=== PATIENT | female | born 1985 | race Caucasian/White ===

== ENCOUNTER 2022-12-24 16:40 | Emergency (ER) | payer OTHER ==
[2022-12-24 16:55] VITALS: BMI 27.8
[2022-12-24 19:46] LABS: BASO % 0.4 % (0-2.0); EOS % 2.7 % (0-4.5); HEMATOCRIT 36.7 % (32.4-45.2); HEMOGLOBIN 12.7 GM/dL (10.7-15.3); LYMPH % 34.6 % (8-40); MCH 29.7 pg (25.7-33.7); MCHC 34.5 g/dl (32.0-36.0); MEAN CELL VOLUME 86.3 fl (80-96); MEAN PLT VOLUME 7.2 fl (7.5-11.1); NEUT % 57.3 % (42.8-82.8); PLATELET COUNT 221 10^3/uL (134-434); RBC 4.26 M/mm3 (3.60-5.2); RDW 13.8 % (11.6-15.6); WHITE BLOOD COUNT 4.4 K/mm3 (4.0-10.0)
[2022-12-24 20:08] LABS: POTASSIUM 3.7 mmol/L (3.5-5.1)
[2022-12-24 20:09] LABS: CALCIUM 8.3 mg/dL (8.5-10.1)
[2022-12-24 20:10] LABS: ALBUMIN 3.5 g/dl (3.4-5.0); BLOOD UREA NITROGEN 12.1 mg/dL (7-18)
[2022-12-24 20:13] LABS: CREATININE 0.7 mg/dL (0.55-1.3)
[2022-12-24 20:15] LABS: BILIRUBIN,TOTAL 0.1 mg/dL (0.2-1); TOT PROT 6.9 g/dl (6.4-8.2)
[2022-12-24] MEDS ORDERED: AMOX TR/POT CLAV 875MG/125MG TABLETS (FP) PO ONE (22:30)
[2022-12-24 22:47] VITALS: BP 103/49; PULSE 55; RESP 18; TEMP 98.4
[2022-12-24] MEDS ORDERED: AMOX TR/POT CLAV 875MG/125MG TABLETS (FP) ONE (23:06)
== END 2022-12-24 23:46 | disposition home or self-care (01) ==
LOC: JER 16:40
DX: H00.035 Abscess of left lower eyelid (principal)
CPT/HCPCS: 36415; 70487-TC; 80053; 84703; 85025; 99285-25; Q9967

== ENCOUNTER 2023-02-27 11:03 | Emergency (ER) | payer OTHER ==
[2023-02-27 11:43] VITALS: BP 94/48; PULSE 62; RESP 18; TEMP 98.2; BMI 27.8
== END 2023-02-27 14:19 | disposition left against medical advice (07) ==
LOC: JERFT 11:03 → JER 11:03
DX: M25.532 Pain in left wrist (principal); L53.8 Other specified erythematous conditions
CPT/HCPCS: 99281-25

== ENCOUNTER 2023-03-01 23:03 | Inpatient (IN) | payer OTHER ==
[2023-03-01] MEDS ORDERED: PIPERACILLIN/TAZOB 4.5 GM 4.5 GM in DEXTROSE 5%-WATER 100 ML IVPB ONE (23:20)
[2023-03-01] MEDS ORDERED: VANCOMYCIN 1,000 MG in DEXTROSE 5%-WATER - 250 ML IVPB ONE (23:20)
[2023-03-01] MEDS ORDERED: PIPERACILLIN/TAZOBACTAM 4.5 GM VIAL IVPB ONE (23:57)
[2023-03-01] MEDS ORDERED: VANCOMYCIN 1,000 MG VIAL (RESTRICTED TO ID ONLY) ONE (23:58)
[2023-03-02 00:35] LABS: HEMATOCRIT 31.7 % (32.4-45.2); HEMOGLOBIN 11.1 GM/dL (10.7-15.3); MEAN CELL VOLUME 85.9 fl (80-96); MEAN PLT VOLUME 7.3 fl (7.5-11.1); PLATELET COUNT 246 10^3/uL (134-434); RBC 3.69 M/mm3 (3.60-5.2); RDW 13.2 % (11.6-15.6); WHITE BLOOD COUNT 5.1 K/mm3 (4.0-10.0)
[2023-03-02] MEDS ORDERED: morphine SULFATE 4 MG/ML VIAL ONE (01:21)
[2023-03-02 01:25] LABS: POTASSIUM 3.6 mmol/L (3.5-5.1)
[2023-03-02 01:27] LABS: CALCIUM 8.4 mg/dL (8.5-10.1)
[2023-03-02 01:28] LABS: ALBUMIN 3.1 g/dl (3.4-5.0); MAGNESIUM 1.8 mg/dL (1.8-2.4)
[2023-03-02 01:31] LABS: CREATININE 0.6 mg/dL (0.55-1.3); PHOSPHOROUS 3.4 mg/dL (2.5-4.9)
[2023-03-02 01:32] LABS: BILIRUBIN,TOTAL 0.2 mg/dL (0.2-1)
[2023-03-02 01:33] LABS: TOT PROT 6.3 g/dl (6.4-8.2)
[2023-03-02] MEDS ORDERED: morphine CARPU-JECT 4 MG/1 ML DISP.SYRIN IVPUSH ONE (01:41)
[2023-03-02] MEDS ORDERED: HYDROmorphone HCl 2 MG/ML VIAL IVPUSH STA (03:05)
[2023-03-02] MEDS ORDERED: HYDROmorphone HCL/PF 1 MG/ML VIAL ONE (03:13)
[2023-03-02 04:00] VITALS: BMI 29.2
[2023-03-02] MEDS ORDERED: DOCUSATE SODIUM 100 MG CAPSULE (FP) PO PRN (04:22)
[2023-03-02] MEDS: SODIUM CHLORIDE 1,000 ML IV SCH (05:07)
[2023-03-02] MEDS ORDERED: HYDROmorphone HCl 2 MG/ML VIAL IVPB PRN (05:38)
[2023-03-02] MEDS: buPROPion HCL 100 MG TABLET PO SCH ×3 (06:20→22:10)
[2023-03-02] MEDS ORDERED: ACETAMINOPHEN 1000 MG/100 ML BAG IVPB PRN ×2 (07:15→07:32)
[2023-03-02] MEDS: PIPERACILLIN/TAZOB 3.375 GM 3.375 GM in DEXTROSE 5%-WATER - 50 ML IVPB SCH ×3 (08:37→22:10)
[2023-03-02] MEDS ORDERED: methaDONE 80 MG, methaDONE 20 MG PO ONE (10:15)
[2023-03-02] MEDS: methaDONE 80 MG, methaDONE 20 MG PO SCH (10:43)
[2023-03-02] MEDS: NICOTINE 14 MG/24 HOURS TOPICAL PATCH TD SCH (10:44)
[2023-03-02] MEDS: VANCOMYCIN PREMIX 1.5 GM 1,500 MG/300 ML BAG IVPB SCH ×2 (11:30→23:33)
[2023-03-02] MEDS: ALPRAZolam 2 MG TABLET PO PRN ×2 (11:30→22:10)
[2023-03-02] MEDS: KETOROLAC TROMETHAMINE 30 MG/1 ML VIAL IVPUSH PRN (13:22)
[2023-03-03] MEDS: KETOROLAC TROMETHAMINE 30 MG/1 ML VIAL IVPUSH PRN ×3 (03:08→18:14)
[2023-03-03] MEDS: PIPERACILLIN/TAZOB 3.375 GM 3.375 GM in DEXTROSE 5%-WATER - 50 ML IVPB SCH ×2 (03:09→19:02)
[2023-03-03] MEDS ORDERED: methaDONE HCL 10 MG TABLET PO SCH (06:00)
[2023-03-03] MEDS: SODIUM CHLORIDE 1,000 ML IV SCH (06:20)
[2023-03-03] MEDS: methaDONE 80 MG, methaDONE 20 MG PO SCH (06:20)
[2023-03-03] MEDS: buPROPion HCL 100 MG TABLET PO SCH ×3 (06:21→21:38)
[2023-03-03 08:15] LABS: PROTHROMBIN TIME (PATIENT) 11.6 SEC (9.7-13.0)
[2023-03-03 08:18] LABS: ACTIVATED PTT 31.9 SECONDS (25.2-36.5)
[2023-03-03 08:51] LABS: BLOOD UREA NITROGEN 11.2 mg/dl (7-18); CALCIUM 8.1 mg/dl (8.5-10.1); CREATININE 0.6 mg/dl (0.6-1.3); MAGNESIUM 1.8 mg/dL (1.8-2.4); PHOSPHOROUS 3.96 (2.5-4.9); POTASSIUM 4.1 mmol/L (3.5-5.1)
[2023-03-03] MEDS ORDERED: PIPERACILLIN/TAZOB 3.375 GM 3.375 GM in DEXTROSE 5%-WATER - 50 ML IVPB SCH (09:00)
[2023-03-03] MEDS: ENOXAPARIN NA (PORCINE) 40 MG/0.4 ML DISP.SYRIN SQ SCH (09:35)
[2023-03-03] MEDS: NICOTINE 14 MG/24 HOURS TOPICAL PATCH TD SCH (09:35)
[2023-03-03 09:44] LABS: BASO % 0.6 % (0-2.0); EOS % 2.4 % (0-4.5); HEMATOCRIT 34.7 % (32.4-45.2); HEMOGLOBIN 11.5 GM/dL (10.7-15.3); MCH 29.2 pg (25.7-33.7); MCHC 33.2 g/dl (32.0-36.0); MEAN CELL VOLUME 87.9 fl (80-96); MEAN PLT VOLUME 7.4 fl (7.5-11.1); MONO % 5.5 % (3.8-10.2); NEUT % 57.5 % (42.8-82.8); PLATELET COUNT 240 10^3/uL (134-434); RBC 3.94 M/mm3 (3.60-5.2); RDW 12.9 % (11.6-15.6); WHITE BLOOD COUNT 2.9 K/mm3 (4.0-10.0)
[2023-03-03] MEDS: ALPRAZolam 2 MG TABLET PO PRN ×2 (11:20→21:38)
[2023-03-03] MEDS ORDERED: VANCOMYCIN HCL 1,500 MG in DEXTROSE 5%-WATER - 250 ML IVPB SCH (12:00)
[2023-03-03] MEDS ORDERED: PIPERACILLIN/TAZOB 3.375 GM 3.375 GM in DEXTROSE 5%-WATER - 50 ML IVPB ONE (18:30)
[2023-03-03] MEDS ORDERED: VANCOMYCIN 1,000 MG in DEXTROSE 5%-WATER - 250 ML IVPB ONE (18:30)
[2023-03-03] MEDS: VANCOMYCIN/WATER FOR INJ (PEG) 1,000 MG/200 ML BAG IVPB SCH (20:05)
[2023-03-04] MEDS: KETOROLAC TROMETHAMINE 30 MG/1 ML VIAL IVPUSH PRN ×2 (00:12→17:30)
[2023-03-04] MEDS: PIPERACILLIN/TAZOB 3.375 GM 3.375 GM in DEXTROSE 5%-WATER - 50 ML IVPB SCH ×2 (01:54→09:05)
[2023-03-04] MEDS: SODIUM CHLORIDE 1,000 ML IV SCH ×2 (04:56→21:32)
[2023-03-04] MEDS: buPROPion HCL 100 MG TABLET PO SCH ×3 (05:38→21:31)
[2023-03-04] MEDS: methaDONE 80 MG, methaDONE 20 MG PO SCH (05:38)
[2023-03-04] MEDS: VANCOMYCIN/WATER FOR INJ (PEG) 1,000 MG/200 ML BAG IVPB SCH (06:12)
[2023-03-04 08:35] LABS: HEMATOCRIT 32.5 % (32.4-45.2); HEMOGLOBIN 10.7 G/dL (10.7-15.3); MCH 29.8 pg (25.7-33.7); MEAN CELL VOLUME 90.6 fl (80-96); MEAN PLT VOLUME 7.8 fl (7.5-11.1); PLATELET COUNT 210.3 10^3/uL (134-434); RBC 3.59 10^6/uL (3.60-5.2); RDW 14.3 % (11.6-15.6); WHITE BLOOD COUNT 3.6 10^3/uL (4.0-10.8)
[2023-03-04] MEDS ORDERED: REFRIGERATED ANITBIOTICS ONE (08:59)
[2023-03-04 09:06] LABS: BLOOD UREA NITROGEN 8.3 mg/dl (7-18); CREATININE 0.6 mg/dl (0.6-1.3); MAGNESIUM 1.9 mg/dL (1.8-2.4); PHOSPHOROUS 3.08 (2.5-4.9); POTASSIUM 3.9 mmol/L (3.5-5.1)
[2023-03-04] MEDS: ALPRAZolam 2 MG TABLET PO PRN ×2 (09:06→21:35)
[2023-03-04] MEDS: ENOXAPARIN NA (PORCINE) 40 MG/0.4 ML DISP.SYRIN SQ SCH (09:06)
[2023-03-04] MEDS: NICOTINE 14 MG/24 HOURS TOPICAL PATCH TD SCH (09:06)
[2023-03-04] MEDS ORDERED: VANCOMYCIN 1,000 MG in DEXTROSE 5%-WATER - 250 ML IVPB SCH (10:00)
[2023-03-04] MEDS: VANCOMYCIN PREMIX 1.5 GM 1,500 MG/300 ML BAG IVPB SCH (17:30)
[2023-03-04] MEDS: METOCLOPRAMIDE HCL INJECTION 10 MG/2 ML VIAL IVPUSH PRN (17:57)
[2023-03-05] MEDS: KETOROLAC TROMETHAMINE 30 MG/1 ML VIAL IVPUSH PRN ×4 (00:39→20:41)
[2023-03-05] MEDS: buPROPion HCL 100 MG TABLET PO SCH ×3 (06:12→21:41)
[2023-03-05] MEDS: methaDONE 80 MG, methaDONE 20 MG PO SCH (06:12)
[2023-03-05] MEDS: VANCOMYCIN PREMIX 1.5 GM 1,500 MG/300 ML BAG IVPB SCH ×2 (06:12→18:58)
[2023-03-05] MEDS: METOCLOPRAMIDE HCL INJECTION 10 MG/2 ML VIAL IVPUSH PRN ×2 (08:19→20:40)
[2023-03-05 08:26] LABS: INR 0.97 (0.83-1.09); PROTHROMBIN TIME (PATIENT) 11.3 SEC (9.7-13.0)
[2023-03-05 08:29] LABS: HEMOGLOBIN 11.5 G/dL (10.7-15.3); MCH 28.7 pg (25.7-33.7); MCHC 31.9 g/dl (32.0-36.0); MEAN CELL VOLUME 90.3 fl (80-96); MEAN PLT VOLUME 7.8 fl (7.5-11.1); RBC 3.99 10^6/uL (3.60-5.2); RDW 14.3 % (11.6-15.6); WHITE BLOOD COUNT 3.8 10^3/uL (4.0-10.8)
[2023-03-05 09:00] LABS: BLOOD UREA NITROGEN 9.5 mg/dl (7-18); CALCIUM 8.5 mg/dl (8.5-10.1); CREATININE 0.7 mg/dl (0.6-1.3); POTASSIUM 4.4 mmol/L (3.5-5.1)
[2023-03-05] MEDS: ALPRAZolam 2 MG TABLET PO PRN ×2 (10:26→21:41)
[2023-03-05] MEDS: ENOXAPARIN NA (PORCINE) 40 MG/0.4 ML DISP.SYRIN SQ SCH (10:26)
[2023-03-05] MEDS: NICOTINE 14 MG/24 HOURS TOPICAL PATCH TD SCH (10:26)
[2023-03-06] MEDS: methaDONE 80 MG, methaDONE 20 MG PO SCH (05:39)
[2023-03-06] MEDS: buPROPion HCL 100 MG TABLET PO SCH ×3 (05:39→21:13)
[2023-03-06] MEDS: VANCOMYCIN PREMIX 1.5 GM 1,500 MG/300 ML BAG IVPB SCH ×2 (05:40→23:17)
[2023-03-06] MEDS: SODIUM CHLORIDE 1,000 ML IV SCH (05:54)
[2023-03-06 08:21] LABS: HEMATOCRIT 34.1 % (32.4-45.2); HEMOGLOBIN 11.2 G/dL (10.7-15.3); MCH 29.5 pg (25.7-33.7); MCHC 32.8 g/dl (32.0-36.0); MEAN CELL VOLUME 90.1 fl (80-96); MEAN PLT VOLUME 7.6 fl (7.5-11.1); PLATELET COUNT 223.9 10^3/uL (134-434); RBC 3.79 10^6/uL (3.60-5.2); RDW 14.2 % (11.6-15.6); WHITE BLOOD COUNT 3.8 10^3/uL (4.0-10.8)
[2023-03-06 09:06] LABS: BLOOD UREA NITROGEN 10.4 mg/dl (7-18); CALCIUM 8.4 mg/dl (8.5-10.1); CREATININE 0.7 mg/dl (0.6-1.3); POTASSIUM 4.4 mmol/L (3.5-5.1)
[2023-03-06] MEDS: METOCLOPRAMIDE HCL INJECTION 10 MG/2 ML VIAL IVPUSH PRN (10:24)
[2023-03-06] MEDS: ENOXAPARIN NA (PORCINE) 40 MG/0.4 ML DISP.SYRIN SQ SCH (10:25)
[2023-03-06] MEDS: NICOTINE 14 MG/24 HOURS TOPICAL PATCH TD SCH (10:25)
[2023-03-06] MEDS: ALPRAZolam 2 MG TABLET PO PRN ×2 (10:27→21:13)
[2023-03-06 12:13] VITALS: RESP 18
[2023-03-06] MEDS ORDERED: SODIUM CHLORIDE 1,000 ML IV SCH (15:15)
[2023-03-06] MEDS: ACETAMINOPHEN 325 MG TABLET (FP) PO PRN (21:13)
[2023-03-07] MEDS: methaDONE 80 MG, methaDONE 20 MG PO SCH (05:44)
[2023-03-07] MEDS: buPROPion HCL 100 MG TABLET PO SCH ×3 (05:45→21:12)
[2023-03-07] MEDS: ACETAMINOPHEN 325 MG TABLET (FP) PO PRN ×3 (05:47→21:12)
[2023-03-07 08:17] LABS: ALBUMIN 3.9 g/dl (3.4-5.0); BILIRUBIN,TOTAL 0.3 mg/dl (0.2-1); BLOOD UREA NITROGEN 9.3 mg/dl (7-18); CREATININE 0.7 mg/dl (0.6-1.3); POTASSIUM 4.4 mmol/L (3.5-5.1); SGOT/AST 56.6 U/L (15-37); SGPT/ALT 81.8 U/L (7-52); TOT PROT 6.3 g/dl (6.4-8.2)
[2023-03-07 08:57] LABS: BASO % 0.6 % (0-2.0); EOS % 3.7 % (0-4.5); HEMATOCRIT 37.7 % (32.4-45.2); HEMOGLOBIN 12.3 GM/dL (10.7-15.3); LYMPH % 33.9 % (8-40); MCHC 32.6 g/dl (32.0-36.0); MEAN CELL VOLUME 89.2 fl (80-96); MEAN PLT VOLUME 7.2 fl (7.5-11.1); MONO % 5.4 % (3.8-10.2); NEUT % 56.4 % (42.8-82.8); PLATELET COUNT 289 10^3/uL (134-434); RBC 4.22 M/mm3 (3.60-5.2); RDW 13.2 % (11.6-15.6); WHITE BLOOD COUNT 3.9 K/mm3 (4.0-10.0)
[2023-03-07] MEDS: METOCLOPRAMIDE HCL INJECTION 10 MG/2 ML VIAL IVPUSH PRN (09:07)
[2023-03-07] MEDS ORDERED: METOCLOPRAMIDE HCL INJECTION 10 MG/2 ML VIAL IM ONE (10:12)
[2023-03-07] MEDS: ENOXAPARIN NA (PORCINE) 40 MG/0.4 ML DISP.SYRIN SQ SCH (11:17)
[2023-03-07] MEDS: NICOTINE 14 MG/24 HOURS TOPICAL PATCH TD SCH (11:17)
[2023-03-07] MEDS: VANCOMYCIN PREMIX 1.5 GM 1,500 MG/300 ML BAG IVPB SCH ×2 (11:54→23:40)
[2023-03-07] MEDS: ALPRAZolam 2 MG TABLET PO PRN (21:13)
[2023-03-08 07:33] LABS: BILIRUBIN,TOTAL 0.3 mg/dl (0.2-1); BLOOD UREA NITROGEN 11.2 mg/dl (7-18); CALCIUM 9.1 mg/dl (8.5-10.1); CREATININE 0.7 mg/dl (0.6-1.3); POTASSIUM 4.6 mmol/L (3.5-5.1); SGOT/AST 68.3 U/L (15-37); SGPT/ALT 94.1 U/L (7-52); TOT PROT 6.5 g/dl (6.4-8.2)
[2023-03-08] MEDS: buPROPion HCL 100 MG TABLET PO SCH ×3 (08:09→22:08)
[2023-03-08] MEDS: ACETAMINOPHEN 325 MG TABLET (FP) PO PRN ×3 (08:09→22:08)
[2023-03-08] MEDS: methaDONE 80 MG, methaDONE 20 MG PO SCH (08:09)
[2023-03-08 09:39] LABS: BASO % 0.6 % (0-2.0); EOS % 3.6 % (0-4.5); HEMOGLOBIN 12.3 GM/dL (10.7-15.3); LYMPH % 37.1 % (8-40); MCH 29.7 pg (25.7-33.7); MCHC 33.4 g/dl (32.0-36.0); MEAN CELL VOLUME 88.9 fl (80-96); MEAN PLT VOLUME 6.9 fl (7.5-11.1); MONO % 5.1 % (3.8-10.2); NEUT % 53.6 % (42.8-82.8); PLATELET COUNT 312 10^3/uL (134-434); RBC 4.16 M/mm3 (3.60-5.2); RDW 13.3 % (11.6-15.6); WHITE BLOOD COUNT 3.9 K/mm3 (4.0-10.0)
[2023-03-08] MEDS: ENOXAPARIN NA (PORCINE) 40 MG/0.4 ML DISP.SYRIN SQ SCH (10:02)
[2023-03-08] MEDS: NICOTINE 14 MG/24 HOURS TOPICAL PATCH TD SCH (10:02)
[2023-03-08] MEDS: ALPRAZolam 2 MG TABLET PO PRN (10:52)
[2023-03-08] MEDS: VANCOMYCIN PREMIX 1.5 GM 1,500 MG/300 ML BAG IVPB SCH (14:02)
[2023-03-09 01:51] VITALS: TEMP 97.7
[2023-03-09] MEDS ORDERED: [UNRECOGNIZED DRUG - OTHER] IVPB SCH (03:00)
[2023-03-09] MEDS ORDERED: VANCOMYCIN IVPB SCH (03:00)
[2023-03-09] MEDS: methaDONE 80 MG, methaDONE 20 MG PO SCH (06:16)
[2023-03-09] MEDS: ACETAMINOPHEN 325 MG TABLET (FP) PO PRN ×2 (06:17→13:06)
[2023-03-09] MEDS: buPROPion HCL 100 MG TABLET PO SCH ×2 (06:17→13:06)
[2023-03-09 06:21] VITALS: BP 100/44; PULSE 52
[2023-03-09] MEDS: ENOXAPARIN NA (PORCINE) 40 MG/0.4 ML DISP.SYRIN SQ SCH (09:16)
[2023-03-09] MEDS: NICOTINE 14 MG/24 HOURS TOPICAL PATCH TD SCH (09:16)
[2023-03-09] MEDS: ALPRAZolam 2 MG TABLET PO PRN (09:50)
[2023-03-09] MEDS ORDERED: VANCOMYCIN PREMIX 1.5 GM 1,500 MG/300 ML BAG IVPB SCH (10:00)
== END 2023-03-09 13:37 | disposition home or self-care (01) | DRG 383 ==
LOC: FER 23:03 → FM/S 03-02 03:17
PROVIDERS: ADMIT Internal Medicine
DX: L02.414 Cutaneous abscess of left upper limb (principal); L03.114 Cellulitis of left upper limb; R51.9 Headache, unspecified; F19.10 Other psychoactive substance abuse, uncomplicated; I10 Essential (primary) hypertension; F11.20 Opioid dependence, uncomplicated; F32.A Depression, unspecified; F41.9 Anxiety disorder, unspecified; F90.9 Attention-deficit hyperactivity disorder, unspecified type; F39 Unspecified mood [affective] disorder; F17.210 Nicotine dependence, cigarettes, uncomplicated; I80.8 Phlebitis and thrombophlebitis of other sites
CPT/HCPCS: 0241U-QW; 36415; 73130-TC-LT-FY; 73218-TC-LT; 80048; 80053; 83735; 84100; 85025; 85027; 85610; 85730; 86803; 87040; 87070; 87186; 87205; 99285-25; G0480

== ENCOUNTER 2023-08-22 11:33 | Emergency (ER) | payer OTHER ==
[2023-08-22 11:46] VITALS: BP 112/75; PULSE 82; RESP 18; TEMP 98.9; BMI 27.8
[2023-08-22] MEDS ORDERED: KETOROLAC TROMETHAMINE 15 MG/ML VIAL ONE (12:32)
[2023-08-22] MEDS: KETOROLAC TROMETHAMINE 15 MG/ML VIAL IM ONE (12:36)
== END 2023-08-22 13:50 | disposition home or self-care (01) ==
LOC: FER 11:33
PROC: 3E0233Z Introduction of Anti-inflammatory into Muscle, Percutaneous Approach (ICD-10-PCS; principal; 2023-08-22)
DX: L03.116 Cellulitis of left lower limb (principal)
CPT/HCPCS: 73610-TC-LT-FY; 73630-TC-LT; 99284-25